=== PATIENT | male | born 1995 | race Caucasian/White ===

== ENCOUNTER 2018-11-30 05:50 | Day surgery (SDC) | payer OTHER ==
[2018-11-30] MEDS ORDERED: METOCLOPRAMIDE 10 MG INJ IV (07:30)
[2018-11-30] MEDS ORDERED: HYDROmorphONE 1 MG/5 ML IV SYRINGE IV ×3 (07:30)
[2018-11-30] MEDS ORDERED: ONDANSETRON 4 MG INJ IV (07:30)
[2018-11-30] MEDS ORDERED: MEPERIDINE 25 MG INJ IV (07:30)
[2018-11-30] MEDS ORDERED: OXYCODONE/ACETAMINOPHEN (5/325) TAB PO ×2 (07:30)
[2018-11-30] MEDS ORDERED: DIPHENHYDRAMINE 50 MG INJ IV (07:30)
[2018-11-30] MEDS ORDERED: FENTAnyl 50 MCG/ML VIAL IV ×3 (07:30)
[2018-11-30] MEDS ORDERED: CEFAZOLIN 1 GM INJ (07:40)
[2018-11-30] MEDS ORDERED: PROPOFOL 20 ML (07:40)
[2018-11-30] MEDS ORDERED: FENTAnyl 50 MCG/ML VIAL (07:40)
[2018-11-30] MEDS ORDERED: MIDAZOLAM 1 MG/ML 2 ML INJ (07:40)
[2018-11-30] MEDS ORDERED: BUPIVACAINE 0.5% (SDV) 30 ML INJ (07:51)
[2018-11-30] MEDS: BUPIVACAINE 0.5% (MPF) 30 ML INJ EPI (08:00)
[2018-11-30] MEDS ORDERED: KETOROLAC 30 MG INJ (08:04)
[2018-11-30] MEDS ORDERED: DEXAMETHASONE 4 MG/ML 5 ML INJ (08:04)
[2018-11-30] MEDS ORDERED: METOCLOPRAMIDE 10 MG INJ (08:04)
[2018-11-30] MEDS ORDERED: ONDANSETRON 4 MG INJ (08:04)
[2018-11-30] MEDS ORDERED: CEFAZOLIN 2 GM/50 ML (PMX) 50 ML IVPB (09:00)
== END 2018-11-30 10:18 | disposition home or self-care (01) ==
LOC: SDS 05:50
DX: L60.0 Ingrowing nail (principal); L03.032 Cellulitis of left toe; L03.031 Cellulitis of right toe; M89.9 Disorder of bone, unspecified
CPT/HCPCS: 11750; 88304